=== PATIENT | male | born 1975 | race Two or more races ===

== ENCOUNTER 2017-02-10 17:00 | Emergency (ER) | payer SELFPAY ==
[2017-02-10] MEDS ORDERED: NO HOME MEDICATION XX (17:16)
[2017-02-10] MEDS ORDERED: NAPROSYN500 M1 PO (18:49)
[2017-02-10] MEDS ORDERED: CYCLOBENZAPRINE10 M1 PO (18:49)
== END 2017-02-10 19:11 ==
LOC: EDMED 17:00
DX: S39.012A Strain of muscle, fascia and tendon of lower back, initial encounter (principal); F17.210 Nicotine dependence, cigarettes, uncomplicated; V18.4XXA Pedal cycle driver injured in noncollision transport accident in traffic accident, initial encounter; Y93.55 Activity, bike riding; Y92.410 Unspecified street and highway as the place of occurrence of the external cause; Y99.8 Other external cause status
CPT/HCPCS: J1885; J2360